=== PATIENT | male | born 1950 | race Caucasian/White ===

== ENCOUNTER 2021-08-27 05:27 | Day surgery (SDC) | payer MEDICARE ==
[~2021-08-27] VITALS: Ht 162.6 cm; Wt 73.2 kg
[~2021-08-27 05:27] MED LIST: SODIUM CHLORIDE 0.9% 1,000 ML IV ONE
[2021-08-27] MEDS ORDERED: SODIUM CHLORIDE 0.9% 1,000 ML ONE (06:53)
[2021-08-27 06:55] LABS: COVID AG,FIA SOURCE NASAL SWAB
[2021-08-27] MEDS ORDERED: SODIUM CHLORIDE 0.9% 10 ML ONE (07:14)
[2021-08-27] MEDS ORDERED: FentaNYL CITRATE PF 100 MCG/2 ML VIAL ONE (07:52)
[2021-08-27] MEDS ORDERED: MIDAZOLAM HCL 5 MG/ML VIAL ONE (07:52)
[2021-08-27] MEDS ORDERED: MethylPREDNISolone SOD SUCC 125 MG/2 ML VIAL IVP ONE (09:00)
[2021-08-27] MEDS ORDERED: MethylPREDNISolone SOD SUCC 125 MG/2 ML VIAL ONE (09:09)
[2021-08-27] MEDS ORDERED: BUPR-50 PO (10:14)
[2021-08-27] MEDS ORDERED: ALBU6.7H9 IH (10:14)
[2021-08-27] MEDS ORDERED: ALBU0.8311 IH (10:14)
[2021-08-27] MEDS ORDERED: ATOR20TA65 PO (10:14)
[2021-08-27] MEDS ORDERED: LOSA100T58 PO (10:14)
[2021-08-27] MEDS ORDERED: BUDE10.2 IH (10:14)
[2021-08-27] MEDS ORDERED: OXYGEN THERAPY IH SCH (20:00)
== END 2021-08-27 11:15 | disposition home or self-care (01) ==
LOC: SURGERY 05:27
PROVIDERS: ATTEND Internal Medicine Critical Care Medicine
DX: J38.4 Edema of larynx (principal); B37.0 Candidal stomatitis; I10 Essential (primary) hypertension; F32.9 Major depressive disorder, single episode, unspecified; E78.00 Pure hypercholesterolemia, unspecified; G30.9 Alzheimer's disease, unspecified; F02.80 Dementia in other diseases classified elsewhere, unspecified severity, without behavioral disturbance, psychotic disturbance, mood disturbance, and anxiety; J43.9 Emphysema, unspecified; Z79.899 Other long term (current) drug therapy; Z98.890 Other specified postprocedural states
CPT/HCPCS: 31623; 31624; 71045; 87015; 87070; 87101; 87206; 87220; 87426; 88108; 88184; 88185; 88305; C9803; J2250; J2930; J3010; J7030